=== PATIENT | male | born 1945 | race Caucasian/White ===

== ENCOUNTER 2022-05-16 09:31 | Emergency (ER) | payer MEDICARE, OTHER, SELFPAY ==
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
[2022-05-16 10:08] VITALS: BP 138/95; PULSE 63; RESP 18; TEMP 36.5; O2SAT 96; BMI 31.5
[2022-05-16 10:34] VITALS: BP 138/95; PULSE 63; RESP 18; TEMP 36.5
== END 2022-05-16 10:35 | disposition home or self-care (01) ==
PROVIDERS: Emergency Provider Nurse Practitioner Family
DX: S91.331A Puncture wound without foreign body, right foot, initial encounter (principal); W45.0XXA Nail entering through skin, initial encounter; Y92.049 Unspecified place in boarding-house as the place of occurrence of the external cause; Z23 Encounter for immunization
CPT/HCPCS: 90471; 90714; 99212; G0463